=== PATIENT | female | born 1985 | race Caucasian/White ===

== ENCOUNTER 2018-07-16 16:29 | Emergency (ER) | payer OTHER ==
[2018-07-16] MEDS ORDERED: LORazepam 2 MG/ML INJ ONE (16:37)
--- NOTE | 2018-07-16 16:37 | EDPHY ---
H & P Time Seen by Provider: 07/16/18 16:30 HPI/ROS: CHIEF COMPLAINT: Seizure HISTORY OF PRESENT ILLNESS: This is a 32-year-old female with a history of tonic-clonic seizures which she takes Keppra. She arrives today by ambulance after eating a marijuana edible (reportedly 5 mg). She believes that she then had a seizure. The report from the paramedics is that she had some arm and leg movements but no loss of consciousness. She denies any injury with this event. I have spoken with of friend who states that [place] the patient complained of feeling weak. This seemed to worsen so they returned home where she was noted to have some jerking movements of her arms. There was no loss of consciousness. This was interpreted as seizure activity by the friend. REVIEW OF SYSTEMS: A ten system review of systems was performed and is negative with the exception of the items mentioned in the HPI. Past medical history: Seizure disorder. Past surgical history: Negative. Social history: She lives in [place]. . No tobacco. General Appearance: Alert. Vital signs reviewed. 135/89l, HR 126 at triage. Eyes: Pupils equal and round, no conjunctival injection, no discharge. Anicteric. ENT, Mouth: Mucous membranes are moist, no oropharyngeal erythema or edema. Neck: No lymphadenopathy, supple. Respiratory: Lungs are clear to auscultation; no wheezes, rales, or rhonchi. Cardiovascular: Regular rate and rhythm; no murmur, rub, or gallop. Gastrointestinal: Abdomen is soft and nontender, no masses or organomegaly, bowel sounds normal. Skin: Warm and dry, no rashes on exposed skin, normal color. Back: Nontender to palpation over the thoracolumbar spine. No CVAT. Extremities: No lower extremity edema, no calf tenderness or swelling. Neurological: Alert and oriented. Moving all four extremities spontaneously and equally. Slightly sleepy, but easily engaged and answering questions. Cranial nerves II through XII are examined and are intact (visual acuity not tested). Strength is 5 over 5 bilaterally with testing of all major motor groups. Sensation is intact to light touch over all 4 extremities. Deep tendon reflexes are 2+ in the biceps and knees bilaterally. Psychiatric: [place]. No agitation. Constitutional: Initial Vital Signs Temperature (C) 37.0 C 09/24/18 16:30 Heart Rate 126 H 07/16/18 16:30 Respiratory Rate 18 07/16/18 16:30 Blood Pressure 135/89 H 07/16/18 16:30 O2 Sat (%) 97 07/16/18 16:30 O2 Delivery Mode Room Air Allergies/Adverse Reactions: Sulfa (Sulfonamide Antibiotics) Allergy (Verified 07/16/18 16:33) Home Medications: Medication Instructions Recorded Keppra 07/16/18 Medical Decision Making ED Course/Re-evaluation: Patient has been serially evaluated. At 5:30 p.m. She continues to be slightly altered. She is oriented to person place and situation but her affect is flat, she is picking at the bed, and somewhat restless. At 7:00 p.m. She is ambulatory without assistance in the hallway. When re- interviewed, she is alert, oriented, and does not appear altered. She states that she feels fine other than somewhat tired. Labs have been reviewed and are all normal with the exception of urine drug screen is positive for marijuana. She did have an edible earlier today as per HPI. I feel that she can safely return home and that her presentation is due to the effects of the edible. Based upon what I have heard, I do not think that she had a seizure earlier today. However there is no way to know for sure. It is certainly possible that her presentation represented a postictal state. She has been compliant with her Keppra. I have advised her to continue with her current dose. If she has any seizure activity or any other problems I recommend that she return immediately to the emergency department. Differential Diagnosis: Altered mental status including but not limited to hypoglycemia, infectious process, electrolyte abnormality, head injury and intoxicants. - Data Points Laboratory Results: Laboratory Results 07/16/18 17:30 07/16/18 17:30 Medications Given: Discontinued Medications Sodium Chloride (Ns) 1,000 mls @ 0 mls/hr IV ONCE ONE; Wide Open PRN Reason: Protocol Stop: 07/16/18 16:42 Last Admin: 07/16/18 16:46 Dose: 1,000 mls Lorazepam (Ativan Injection) 1 mg IVP EDNOW ONE Stop: 07/16/18 16:42 Last Admin: 07/16/18 16:46 Dose: 1 mg Departure - Departure Disposition: Home, Routine, Self-Care Clinical Impression: Seizure disorder Condition: Good Instructions: Generalized Tonic Clonic Seizures (ED) Additional Instructions: If you have a seizure review of any other concerning symptoms, please return to the emergency department. Continue your Keppra as prescribed. Please follow up with your doctor when you return to [place] this week. I am providing the name of a neurologist, should you need one when in [place]. Referrals: Cr Mcnamara DO [Doctor of Osteopathy] - As per Instructions
[2018-07-16] MEDS ORDERED: NS 1,000 ML IV ONE (16:41)
[2018-07-16] MEDS ORDERED: LORazepam 2 MG/ML INJ IVP ONE (16:41)
[2018-07-16 18:09] LABS: PLATELET COUNT 402 10^3/uL (150-400)
[2018-07-16 19:07] VITALS: BP 132/92
== END 2018-07-16 19:19 | disposition home or self-care (01) ==
DX: G40.309 Generalized idiopathic epilepsy and epileptic syndromes, not intractable, without status epilepticus (principal); E86.9 Volume depletion, unspecified; Z79.899 Other long term (current) drug therapy
CPT/HCPCS: 80305; 96374; G0480; J2060